=== PATIENT | female | born 1970 | race African-American/Black ===

== ENCOUNTER 2016-11-01 07:11 | Day surgery (SDC) | payer OTHER ==
[~2016-11-01] VITALS: Ht 162.6 cm; Wt 78.8 kg
[2016-11-01] MEDS ORDERED: TOPROL XL200 MG PO (07:37)
[2016-11-01] MEDS ORDERED: AMITRIPTYLINE H50 M1 PO (07:38)
[2016-11-01] MEDS ORDERED: PRINIVIL10 MG PO (07:38)
[2016-11-01] MEDS ORDERED: CRESTOR20 MG PO (07:39)
[2016-11-01] MEDS ORDERED: TAPAZOLE10 MG PO (07:39)
[2016-11-01 07:51] VITALS: BP 141/100; PULSE 87; TEMP 98.3
[2016-11-01 08:55] VITALS: BP 138/94; PULSE 79; TEMP 98.4
[2016-11-01 09:10] VITALS: BP 132/94; PULSE 82
[2016-11-01 09:25] VITALS: BP 131/100; PULSE 91
[2016-11-01 09:40] VITALS: BP 138/103; PULSE 80
== END 2016-11-01 09:50 | disposition home or self-care (01) ==
LOC: SDCO 07:11
DX: K25.7 Chronic gastric ulcer without hemorrhage or perforation (principal); D50.0 Iron deficiency anemia secondary to blood loss (chronic); K21.9 Gastro-esophageal reflux disease without esophagitis; R19.5 Other fecal abnormalities; K30 Functional dyspepsia
CPT/HCPCS: J2250; J3010; J7030